=== PATIENT | male | born 1990 | race Two or more races ===

== ENCOUNTER 2018-12-13 23:33 | Emergency (ER) | payer MEDICAID ==
[~2018-12-13] VITALS: Ht 162.6 cm; Wt 69.9 kg
[2018-12-14] VITALS: BP 128/72
--- NOTE | 2018-12-14 | NUR ---
ED Nurse Note: Patient walk in c/o fever, cough, sore throat for 1 week. Temp is 100.8 in triage. seen by ermjose. flu swab done by ermd advise. will continue to monitor.
[2018-12-14] MEDS ORDERED: IBUPROFEN600 MG ORAL (01:26)
[2018-12-14 01:30] VITALS: BP 128/72
--- NOTE | 2018-12-14 01:30 | NUR ---
ER DISCHARGE NOTE: Patient is cleared to be discharged per ERMD, pt is aox4, on room air, with stable vital signs. pt was given dc and prescription instructions, pt was able to verbalize understanding, pt id band removed without complications. pt is able to ambulate with steady gait. pt took all belongings.
--- NOTE | 2018-12-17 18:01 | Emergency Room Report ---
History of Present Illness General Chief Complaint: Upper Respiratory Illness Source: Patient Present Illness HPI Patient is a 28-year-old male presented after increased cough and congestion. Patient reports having increased nonproductive cough. He reports having some subjective cough and sore throat. He denies any fever. Allergies: Coded Allergies: No Known Allergies (Unverified , 12/13/18) Patient History Past Medical History: see triage record Reviewed Nursing Documentation: PMH: Agreed; PSxH: Agreed Nursing Documentation-PMH Past Medical History: No Stated History Review of Systems All Other Systems: negative except mentioned in HPI Physical Exam Vital Signs Date Time Temp Pulse Resp B/P (MAP) Pulse Ox O2 Delivery O2 Flow Rate FiO2 12/13/18 23:52 100.8 116 18 128/72 95 Room Air Sp02 EP Interpretation: reviewed, normal General Appearance: normal inspection, well appearing, no apparent distress, alert, GCS 15 Head: atraumatic ENT: normal ENT inspection, hearing grossly normal, normal voice Neck: normal inspection, full range of motion, supple, no bony tend Respiratory: normal inspection, lungs clear, normal breath sounds, no respiratory distress, no retraction, no wheezing Cardiovascular #1: regular rate, rhythm, no edema Gastrointestinal: normal inspection, normal bowel sounds, non tender, soft, no guarding, no hernia Genitourinary: no CVA tenderness Musculoskeletal: normal inspection, back normal, normal range of motion Neurologic: normal inspection, alert, oriented x3, responsive, lead infrastructure architect III-XII nml as tested, speech normal Psychiatric: normal inspection, judgement/insight normal, mood/affect normal Skin: normal inspection, normal color, no rash Medical Decision Making Diagnostic Impression: Primary Impression: Viral respiratory infection ER Course Patient presented for cough. Differential diagnosis included but was not limited to bronchitis, pneumonia, pulmonary embolism, pericarditis, asthma, foreign body. Patient has a benign exam and does not appear to require any further imaging or laboratory testing at this time. Influenza a and B study was negative. The patient is advised to follow up with primary care doctor in 1-2 days. Patient is advised to return if any worsening condition or if any changes in status that are concerning. This report is dictated with [employer] management coordinator software which may occasionally lead to discrepancies related to use of this software. Last Vital Signs Date Time Temp Pulse Resp B/P (MAP) Pulse Ox O2 Delivery O2 Flow Rate FiO2 12/14/18 01:30 99.0 98 18 128/72 95 Room Air Status: improved Disposition: HOME, SELF-CARE Condition: Stable Scripts Ibuprofen* (MOTRIN*) 600 Mg Tablet 600 MG ORAL Q8H PRN for For Pain, #30 TAB 0 Refills Prov: Venkata Tobin MD 12/14/18 Referrals: NOT CHOSEN [facility]/,REFERRING (PCP) Patient Instructions: Viral Respiratory Infection Venkata Tobin MD Dec 17, 2018 18:01
== END 2018-12-14 01:30 | disposition home or self-care (01) ==
LOC: EMR 12-14 01:01
DX: J98.8 Other specified respiratory disorders (principal); B34.9 Viral infection, unspecified
CPT/HCPCS: 86710; 99282

== ENCOUNTER 2019-09-19 21:30 | Emergency (ER) | payer MEDICAID ==
[~2019-09-19] VITALS: Ht 154.9 cm; Wt 68.0 kg
[~2019-09-19 21:30] MED LIST: IBUPROFEN600 MG ORAL
[2019-09-19 21:50] VITALS: BP 133/87
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
[2019-09-19 22:33] LABS: EOSINOPHILS % (AUTO) 6.4 % (0.0-3.0); HEMATOCRIT 45.3 % (42.0-52.0); HEMOGLOBIN 16.3 G/DL (14.2-18.0); LYMPHOCYTES % (AUTO) 25.5 % (20.0-45.0); MEAN CORPUSCULAR VOLUME 79 FL (80-99); MONOCYTES % (AUTO) 9.5 % (1.0-10.0); NEUTROPHILS % (AUTO) 56.6 % (45.0-75.0); PLATELET COUNT 352 K/UL (150-450); RED CELL DISTRIBUTION WIDTH 9.9 % (11.6-14.8); WHITE BLOOD COUNT 7.2 K/UL (4.8-10.8)
[2019-09-19 22:42] LABS: ANION GAP 6 mmol/L (5-15); BLOOD UREA NITROGEN 20 mg/dL (7-18); CALCIUM 9.3 MG/DL (8.5-10.1); CARBON DIOXIDE 33 MMOL/L (21-32); CHLORIDE 101 MMOL/L (98-107); CREATININE 0.8 MG/DL (0.55-1.30); POTASSIUM 3.6 MMOL/L (3.5-5.1); SODIUM 140 MMOL/L (136-145)
[2019-09-19 22:47] LABS: ALANINE AMINOTRANSFERASE 50 U/L (12-78); ALBUMIN/GLOBULIN RATIO 0.9 (1.0-2.7); ALKALINE PHOSPHATASE 101 U/L (46-116); ASPARTATE AMINO TRANSFERASE 20 U/L (15-37); BILIRUBIN,TOTAL 0.4 MG/DL (0.2-1.0)
[2019-09-19] MEDS ORDERED: HYDROCORTISONE28 G2 TP (23:30)
[2019-09-19] MEDS ORDERED: OMEPRAZOLE20 M2 ORAL (23:30)
[2019-09-19] MEDS ORDERED: Sucralfate 1gm tab ORAL ONE (23:45)
[2019-09-20 00:05] VITALS: BP 133/87
--- NOTE | 2019-09-20 16:13 | Cardiology Report ---
APPROVED REPORT EKG Measurement Heart [id number] Normal sinus rhythm Normal ECG
== END 2019-09-20 00:12 | disposition home or self-care (01) ==
LOC: EMR 22:05
DX: R07.89 Other chest pain (principal)
CPT/HCPCS: 36415; 80053; 83690; 84484; 85025; 85379; 93005; Z7502; 99283

== ENCOUNTER 2019-12-19 23:36 | Emergency (ER) | payer MEDICAID ==
[~2019-12-19] VITALS: Ht 160 cm; Wt 68.0 kg
[~2019-12-19 23:36] MED LIST changes: +HYDROCORTISONE28 G2 TP; +OMEPRAZOLE20 M2 ORAL
[2019-12-20 00:12] VITALS: BP 118/80
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
[2019-12-20] MEDS ORDERED: IBUPROFEN600 MG ORAL (00:38)
[2019-12-20 00:45] VITALS: BP 118/80
--- NOTE | 2019-12-20 00:46 | NUR ---
ED Nurse Note: Pt cleared by health care Provider for discharge. DC instructions/prescription was given and explained to pt and verbalized understanding of teachings. All medical deviecs such as ID band removed. Pt is AAO x4, ambulatory and left with all personal belongings.
--- NOTE | 2019-12-20 16:31 | Diagnostic Imaging Report ---
Indication: Back pain Comparison: None Findings: 3 views of the lumbar spine were obtained. No acute fracture or malalignment is identified. Vertebral body heights and disk spaces are well maintained. Posterior elements are unremarkable. Impression: No acute findings.
== END 2019-12-20 00:46 | disposition home or self-care (01) ==
LOC: EMR 23:59
DX: S39.012A Strain of muscle, fascia and tendon of lower back, initial encounter (principal); V49.40XA Driver injured in collision with unspecified motor vehicles in traffic accident, initial encounter; Y92.410 Unspecified street and highway as the place of occurrence of the external cause
CPT/HCPCS: 72020; Z7502; 99283